=== PATIENT | male | born 1980 | race Caucasian/White ===

== ENCOUNTER 2019-11-18 15:01 | Emergency (ER) | payer OTHER ==
[~2019-11-18] VITALS: Ht 182.9 cm; Wt 104.3 kg
[~2019-11-18 15:01] MED LIST: AUGMENTIN 875875 MG PO; FLEXERIL PO; HYDROCODON-ACE1 EAC7 PO; IBUPROFEN 800800 M1 PO; LEVAQUIN 500 M500 MG PO; NOHOMEMEDICATIONS; PERCOCET 7.5-31 EACH PO; PREDNISONE 20 M20 MG PO; TAMSULOSIN HCL0.4 M1 PO; TORADOL 10 MG T10 MG PO
[2019-11-18 17:12] LABS: ABSOLUTE EOSINOPHILS 0.2 thou/uL (0.0-0.7); ABSOLUTE LYMPHOCYTES 2.3 thou/uL (0.8-5.3); ABSOLUTE MONOCYTES 0.7 thou/uL (0.0-1.2); ABSOLUTE NEUTROPHILS 7.6 thou/uL (1.6-8.1); BASOPHILS 0.4 %; EOSINOPHILS 1.9 %; HEMOGLOBIN 15.4 gm/dL (14.0-18.0); MCH 31.4 pg (26.0-34.0); MCHC 34.9 g/dL (28.0-37.0); MONOCYTES 6.2 %; MPV 8.9 fl. (7.2-11.1); NUCLEATED RBCS 0 /100WBC; PLATELET COUNT* 220 thou/uL (150-400); POLYS 70.5 %; RBC 4.89 mil/uL (4.50-6.00); RDW-CV 13.1 % (10.5-14.5); WBC 10.8 thou/uL (4.0-11.0)
[2019-11-18 17:20] LABS: CALCIUM 9.1 mg/dL (8.5-10.1); CREATININE 0.9 mg/dL (0.6-1.3); POTASSIUM 4.1 mmol/L (3.5-5.1)
[2019-11-18 17:25] LABS: ALBUMIN 4.1 g/dL (3.4-5.0); TOTAL BILIRUBIN 0.3 mg/dL (<0.1-1.0); TOTAL PROTEIN 7.6 g/dL (6.4-8.2)
[2019-11-18] MEDS ORDERED: NORCO 5-325 TA1 EAC2 PO (17:56)
[2019-11-18] MEDS ORDERED: IBUPROFEN 800800 MG PO (17:56)
[2019-11-18 18:07] VITALS: BP 142/70
--- NOTE | 2019-11-19 15:38 | EKG ---
[place] [address] ELECTROCARDIOGRAM REPORT Name: DENNIS CLEMENTE Room: [facility]#: [id number] Admission: 11/18/19 Attend Phys: Discharge: 11/18/19 Date of : 80 Date of Service: 11/18/19 1511 Report #: [id number] THIS REPORT FOR: //name// [facility] ED Test Date: 2019-11-18 Test Time: 15:11:03 Pat Name: DENNIS CLEMENTE Department: Room: Gender: Billet Sawyer: MARIO : 1980 Requested By: Joy Rivera Order Number: [id number] Ryanne MD: Harry Mills Measurements Intervals [place] Rate: 88 P: 34 CO: 158 QRS: 19 QRSD: 71 T: 37 QT: 352 QTc: 426 Interpretive Statements Sinus rhythm Left atrial enlargement RSR' in V1 or V2, right VCD ST elev, probable normal early repol pattern Artifact in lead(s) I,II,III,aVR,aVL,aVF,V1,V2,V3,V4,V6 No previous ECG available for comparison Electronically Signed On 11-19-2019 15:38:04 CDT by Harry Mills [email or web address] <ELECTRONICALLY SIGNED> By: Harry Mills MD, [facility] 11/19/19 1538 1511 1511 Harry Mills MD, [facility] /EPI
== END 2019-11-18 18:08 | disposition home or self-care (01) ==
LOC: M.ERS 15:01
PROVIDERS: Nurse Practitioner Family
DX: S22.32XA Fracture of one rib, left side, initial encounter for closed fracture (principal); V86.09XA Driver of other special all-terrain or other off-road motor vehicle injured in traffic accident, initial encounter; Y93.89 Activity, other specified; Y92.89 Other specified places as the place of occurrence of the external cause; Y99.8 Other external cause status